=== PATIENT | male | born 1965 | race Caucasian/White ===

== ENCOUNTER 2017-05-08 15:06 | Emergency (ER) | payer OTHER ==
[~2017-05-08] VITALS: Ht 180.3 cm; Wt 90.7 kg
[~2017-05-08 15:06] MED LIST: IBUPROFEN 800800 M1 PO; TRAMADOL 50 MG50 MG PO
[2017-05-08 15:11] VITALS: BP 157/100
[2017-05-08] MEDS ORDERED: ERYTHROMYCIN E3.5 G3 OPHTHALMIC (16:02)
== END 2017-05-08 16:09 | disposition home or self-care (01) ==
LOC: M.ERS 15:06
DX: T26.42XA Burn of left eye and adnexa, part unspecified, initial encounter (principal); X08.8XXA Exposure to other specified smoke, fire and flames, initial encounter; Y93.89 Activity, other specified; Y92.89 Other specified places as the place of occurrence of the external cause; Y99.0 Civilian activity done for income or pay